=== PATIENT | female | born 1985 | race African-American/Black ===

== ENCOUNTER 2016-07-31 20:58 | Observation (INO) | payer MEDICAID ==
[~2016-07-31 20:58] MED LIST: HYDROXYZINE HCL25 MG PO; MOTRIN800 MG PO; PRENATAL1 EACH PO; TYLENOL #31 TA1 PO; VENTOLIN HFA18 GM IH; VISTARIL25 M1 PO; ZOFRAN4 M2 PO
[2016-07-31] MEDS ORDERED: PROGESTERO50 MG/1 ML IM (21:34)
[2016-07-31 22:26] LABS: URINE TOTAL PROTEIN-RANDOM 12.6 mg/dl (<11.8)
[2016-08-26] MEDS ORDERED: COLACE100 M1 PO (19:43)
[2016-08-26] MEDS ORDERED: IBUPROFEN600 M1 PO (19:43)
[2016-08-26] MEDS ORDERED: LEXAPRO10 M2 PO (19:44)
[2016-08-27] MEDS ORDERED: PERCOCET 5-3251 EACH PO (10:21)
== END 2016-08-01 00:25 ==
LOC: LDR 20:58
PROVIDERS: Obstetrics & Gynecology; ADMIT Obstetrics & Gynecology
DX: O99.89 Other specified diseases and conditions complicating pregnancy, childbirth and the puerperium (principal); R10.11 Right upper quadrant pain; R10.30 Lower abdominal pain, unspecified; Z3A.34 34 weeks gestation of pregnancy

== ENCOUNTER 2016-08-16 19:33 | Observation (INO) | payer MEDICAID ==
[~2016-08-16 19:33] MED LIST changes: +PROGESTERO50 MG/1 ML IM
[2016-08-16 20:46] LABS: URINE BILIRUBIN NEGATIVE (NEG); URINE BLOOD NEGATIVE (NEG); URINE GLUCOSE (UA) MODERATE (NEG); URINE KETONE NEGATIVE (NEG); URINE LEUKOCYTE ESTERASE NEGATIVE (NEG); URINE NITRITE NEGATIVE (NEG); URINE PROTEIN NEGATIVE (NEG); URINE SPECIFIC GRAVITY 1.015 (1.003-1.030)
[2016-08-16 20:48] LABS: URINE APPEARANCE CLEAR; URINE COLOR YELLOW
[2016-08-26] MEDS ORDERED: COLACE100 M1 PO (19:43)
[2016-08-26] MEDS ORDERED: IBUPROFEN600 M1 PO (19:43)
[2016-08-26] MEDS ORDERED: LEXAPRO10 M2 PO (19:44)
[2016-08-27] MEDS ORDERED: PERCOCET 5-3251 EACH PO (10:21)
== END 2016-08-16 21:45 ==
LOC: LDR 19:33
PROVIDERS: ADMIT Obstetrics & Gynecology Obstetrics
DX: O47.1 False labor at or after 37 completed weeks of gestation (principal); Z3A.37 37 weeks gestation of pregnancy